=== PATIENT | female | born 2000 | race Caucasian/White ===

== ENCOUNTER → 2021-05-16 12:50 | Emergency (ER) | payer BC, SELFPAY | END | disposition left against medical advice (07) | PROVIDERS: Emergency Provider Internal Medicine Hematology & Oncology | DX: Z53.21 Procedure and treatment not carried out due to patient leaving prior to being seen by health care provider (principal) | CPT/HCPCS: 99199 ==

== ENCOUNTER 2021-05-16 13:15 | Emergency (ER) | payer BC, SELFPAY ==
--- NOTE | ~2021-05-16 | CT_ITS ---
EXAMINATION: CT BRAIN W/O DATE: 05/16/2021 17:46 INDICATION: Dizziness TECHNIQUE: Computed tomography (CT) of the head was performed without intravenous contrast. The dose- length product was 529.67 mGy-cm. Automated exposure control and iterative reconstruction technique w ere employed. COMPARISON: No prior studies for comparison. FINDINGS: Normal brain parenchymal volume for age. Normal tuttle-white differentiation. No acute intrac ranial hemorrhage, infarction, mass or mass effect. No ventriculomegaly or midline shift. Midline sagittal images demonstrate a normal corpus callosum, c raniovertebral junction and sella turcica. Basilar cisterns are patent. Paranasal sinuses and mastoids are pneumatized. No depressed skull fractures. IMPRESSION: 1. No acute intracranial abnormality. Reviewed, dictated and finalized at location A. [employer]
[2021-05-16 13:18] VITALS: BP 127/72; PULSE 81; RESP 18; TEMP 36.1; O2SAT 100
[2021-05-16 15:14] VITALS: BP 112/82; PULSE 114; RESP 16; O2SAT 100
[2021-05-16 16:59] VITALS: PULSE 84; RESP 19; O2SAT 100
[2021-05-16 17:00] VITALS: BP 124/68; PULSE 84; RESP 18; O2SAT 100
[2021-05-16 17:16] LABS: Basophils Percent Auto 0.4 % (0.2-1.2); Eosinophils Absolute Auto 0.2 K/mm3 (0-0.3); Eosinophils Percent Auto 1.3 % (0-4.4); Hematocrit 41.6 % (37.0-47.0); Immature Granulocyte Absolute 0.03 K/mm3 (0.00-0.031); Immature Granulocyte Percent A 0.3 % (0-0.5); Lymphocytes Absolute Auto 2.63 K/mm3 (0.9-3.2); Lymphocytes Percent Auto 23.6 % (18.3-44.2); Mean Corpuscular HGB Conc 33.7 g/dl (32-36); Mean Corpuscular Hemoglobin 29.9 pg (26-34); Mean Corpuscular Volume 88.7 fl (80-100); Mean Platelet Volume 9.2 fl (7.4-10.4); Monocytes Absolute Auto 0.8 K/mm3 (0.1-0.6); Neutrophils Absolute Auto 7.5 K/mm3 (1.3-6.7); Neutrophils Percent Auto 67.4 % (45.5-73.1); Platelet Count Result 368 k/mm3 (150-375); Red Blood Count 4.69 M/mm3 (4.2-5.4); White Blood Count 11.2 K/mm3 (4.5-10.0)
[2021-05-16 17:21] LABS: Add Urine Microscopic? YES; Appearance Urine Clear (Clear); Bilirubin Urine Negative (Negative); Blood Urine Negative (Negative); Color Urine Yellow (Yellow); Glucose Urine UA Negative (Negative); Ketones Urine Trace mg/dL (Negative); Leukocyte Esterase Ur Negative LEU/UL (Negative); Mucus Urine Rare /lpf; Nitrate Urine Negative (Negative); Protein Urine Negative (Negative); RBC Urine 0-2 /hpf (0-2); Specific Grav Ur 1.018 (1.001-1.035); Squamous Epithelial Cell Urine Moderate /hpf (Few); Urobilinogen Urine Negative mg/dL (<2.0)
--- NOTE | 2021-05-16 17:22 | ED.GENADULT ---
HPI - General Adult General Chief complaint: Dizziness Stated complaint: dizzy x 1 year, syncope Time Seen by Provider: 05/16/21 16:57 Source: patient and RN notes reviewed History of Present Illness HPI narrative: Patient is a 20 y/o female complaining of intermittent, moderate dizziness for 1 year. She describes her dizziness a light-headedness sensation. She states that laying down helps with her dizziness sometimes. Mother states that she passed out 1 month ago. Related Data Home Medications Medication Instructions Recorded Confirmed No Home Medications 05/16/21 05/16/21 Allergies Allergy/AdvReac Type Severity Reaction Status Date / Time No Known Allergies Allergy Mild Verified 05/16/21 16:48 Review of Systems Constitutional: Constitutional: Denies chills, Denies fever(s), Denies headache(s) and Denies weakness Eyes: Eyes: Denies blurry vision ENT: Denies headache(s) and Denies neck pain Cardiovascular: Cardiovascular: Denies chest pain and Denies dyspnea Respiratory: Respiratory: Denies cough and Denies dyspnea Gastrointestinal: Gastrointestinal: Denies abdominal pain, Denies diarrhea, Denies nausea and Denies vomiting Genitourinary: Genitourinary: Denies hematuria and Denies dysuria Musculoskeletal: Musculoskeletal: Denies back pain and Denies neck pain Neurologic: Reports dizziness, Reports syncope, Denies headache(s) and Denies weakness Exam Const: General: no acute distress and well developed Orientation/consciousness: oriented to person, oriented to place, oriented to time and patient oriented x3 HENMT: Head: normocephalic Ears: external ears normal General nose exam: Normal external nose present Eyes: General: appearance normal, both eyes and all related structures Conjunctivae: conjunctivae normal Neck: Neck: normal visual inspection and full ROM Chest: Chest palpation & inspection: normal inspection of the chest and no tenderness Resp: Effort & Inspection: normal respiratory effort Auscultation: clear to auscultation bilaterally Cardio: Rate: regular rate Rhythm: regular rhythm GI: GI Palp: No abdominal tenderness and Yes Soft to palpation Skin: General skin exam: normal color and turgor normal Neuro: General: oriented to person, oriented to place, oriented to time and patient oriented x3 Cranial nerves: Yes CN's II-XII intact bilaterally Cognition (Neuro): normal cognition Speech: normal speech Motor exam (neuro): 5/5 motor strength present throughout Sensory Exam: normal sensation Coordination: [id number] test normal and [id number] test normal Extrem: General: normal to inspection, full ROM and no pedal edema Psych: Appearance: grossly normal Mental Status: mental status grossly normal Affect: normal affect Course Vital Signs Vital signs: Vital Signs Temperature 36.1 C L 05/16/21 13:18 Pulse Rate 81 05/16/21 13:18 Respiratory Rate 18 05/16/21 13:18 Blood Pressure 127/72 05/16/21 13:18 Pulse Oximetry 100 05/16/21 13:18 Temperature 36.8 C 05/16/21 20:08 Pulse Rate 73 05/16/21 20:08 Respiratory Rate 18 05/16/21 20:08 Blood Pressure 124/69 05/16/21 20:08 Pulse Oximetry 99 05/16/21 20:08 Medical Decision Making Vital Signs Vital Signs: Vital Signs Temperature 36.1 C L 05/16/21 13:18 Pulse Rate 81 05/16/21 13:18 Respiratory Rate 18 05/16/21 13:18 Blood Pressure 127/72 05/16/21 13:18 Pulse Oximetry 100 05/16/21 13:18 Temperature 36.8 C 05/16/21 20:08 Pulse Rate 73 05/16/21 20:08 Respiratory Rate 18 05/16/21 20:08 Blood Pressure 124/69 05/16/21 20:08 Pulse Oximetry 99 05/16/21 20:08 Lab Data Result diagrams: 05/16/21 17:07 05/16/21 17:07 Labs: Lab Results 05/16/21 05/16/21 05/16/21 Range/Units 17:07 17:07 17:07 WBC 11.2 H (4.5-10.0) K/mm3 RBC 4.69 (4.2-5.4) M/mm3 Hgb 14.0 (12.0-15.0) g/dL Hct 41.6 (37.0-47.0) % MCV 88
[2021-05-16 17:30] LABS: Pregnancy On Board Control Positive; Urine Pregnancy Test Negative
[2021-05-16 17:33] LABS: Anion Gap 10 mmol/L (8-16); Blood Urea Nitrogen 12 mg/dL (8-21); Carbon Dioxide 26 mmol/L (22-30); Chloride 99 mmol/L (98-107); Estimated CRCL calculation 74 ml/min; Estimated Glomerular Filt Rate > 60; Glucose 88 mg/dL (65-110); Potassium 3.6 mmol/L (3.4-5.0); Sodium 135 mmol/L (134-143)
[2021-05-16] MEDS: SODIUM CHLORIDE 0.9% IV 1,000 ML 999 ML IV CONT (17:51)
[2021-05-16 18:22] LABS: Amphetamine Screen Urine Negative (Negative); Barbiturate Screen Urine Negative (Negative); Benzodiazepines Screen Urine Negative (Negative); Cannabinoid Screen Urine Negative (Negative); Cocaine Screen Urine Negative (Negative); Methadone Screen Urine Negative (Negative); Opiate Screen Urine Negative (Negative); Phencyclidine Screen Urine Negative (Negative)
[2021-05-16 20:08] VITALS: BP 124/69; PULSE 73; RESP 18; TEMP 36.8; O2SAT 99
== END 2021-05-16 20:11 | disposition home or self-care (01) ==
PROVIDERS: Emergency Provider Emergency Medicine; PCP Nurse Practitioner Family
DX: R42 Dizziness and giddiness (principal)
CPT/HCPCS: 36415; 70450; 80048; 80307; 81001; 81025; 85025; 96360; 99284; J7030

== ENCOUNTER 2024-01-22 12:00 | Outpatient (CLI) | payer BC, SELFPAY ==
[2024-01-22 12:24] LABS: Basophils Absolute Auto 0.1 K/mm3 (0.0-0.1); Basophils Percent Auto 0.6 % (0.2-1.2); Eosinophils Absolute Auto 0.1 K/mm3 (0-0.3); Eosinophils Percent Auto 1.6 % (0-4.4); Hematocrit 40.9 % (37.0-47.0); Hemoglobin 13.4 g/dL (12.0-15.0); Immature Granulocyte Absolute 0.03 K/mm3 (0.00-0.031); Immature Granulocyte Percent A 0.4 % (0-0.5); Lymphocytes Absolute Auto 2.52 K/mm3 (0.9-3.2); Lymphocytes Percent Auto 29.5 % (18.3-44.2); Mean Corpuscular HGB Conc 32.8 g/dl (32-36); Mean Corpuscular Hemoglobin 29.1 pg (26-34); Mean Corpuscular Volume 88.7 fl (80-100); Mean Platelet Volume 9.6 fl (7.4-10.4); Monocytes Absolute Auto 0.6 K/mm3 (0.1-0.6); Monocytes Percent Auto 7.5 % (2.6-8.5); Neutrophils Absolute Auto 5.2 K/mm3 (1.3-6.7); Neutrophils Percent Auto 60.4 % (45.5-73.1); Platelet Count Result 319 k/mm3 (150-375); Red Blood Count 4.61 M/mm3 (4.2-5.4); White Blood Count 8.6 K/mm3 (4.5-10.0)
[2024-01-22 12:33] LABS: Cholesterol 169 mg/dL (0-200); HDL Direct 72 mg/dL; Triglycerides 65 mg/dL (<150)
[2024-01-22 12:34] LABS: Hemoglobin A1C 5.2 % (<5.7)
[2024-01-22 12:44] LABS: LDL Cholesterol Direct 69 mg/dL
[2024-01-22 12:49] LABS: Beta HCG Quantitative < 2.39 mIU/ML
[2024-01-25 02:44] LABS: Progesterone 0.6 ng/mL
[2024-01-25 03:15] LABS: DHEA-Sulfate 163 mcg/dL (14-349); Prolactin 12.2 ng/mL
[2024-01-27 09:49] LABS: Testosterone Free 4.7 pg/mL (0.1-6.4); Testosterone Total 67 ng/dL (2-45)
[2024-01-31 19:45] LABS: Estradiol, Ultrasensitive 65 pg/mL
== END 2024-01-22 12:01 | disposition home or self-care (01) ==
LOC: ANHLAB 12:02
PROVIDERS: PCP Nurse Practitioner Family; Visit Provider Obstetrics & Gynecology
DX: L68.0 Hirsutism (principal); N92.6 Irregular menstruation, unspecified
CPT/HCPCS: 36415; 80061; 82627; 82670; 83001; 83036; 83498; 84144; 84146; 84402; 84403; 84443; 84702; 85025; 87086; 87088